=== PATIENT | female | born 1960 ===

== ENCOUNTER 2018-02-28 01:52 | Emergency (ER) | payer OTHER ==
[2018-02-28 01:56] VITALS: O2SAT 100; BMI 19.1
[2018-02-28] MEDS ORDERED: Sodium Chloride 0.9% 1,000 ML IV STA (02:23)
[2018-02-28] MEDS ORDERED: DiphenhydrAMINE 50 mg/ml Inj IV STA (02:23)
[2018-02-28] MEDS ORDERED: DiphenhydrAMINE 50 mg/ml Inj ONE (02:42)
--- NOTE | 2018-02-28 02:54 | ED PDOC ---
HPI: Skin/Bite Injury Time Seen by Provider: 02/28/18 02:00 Chief Complaint (Nursing): Bite Chief Complaint (Provider): diffused rash History Per: Patient History/Exam Limitations: no limitations Onset/Duration Of Symptoms: Hrs (x24) Current Symptoms Are (Timing): Still Present Quality Of Symptoms: Itching Additional Complaint(s): Neida Carpenter is a 57 year old female, with a past medical history of hypothyroidism, who presents to the emergency department for evaluation of diffused rash for the last x24 hrs. Patient reports x3-4 days ago she was bitten by what she thought were mosquitoes in her yard. Patient states she developed flu-like symptoms afterwards including body aches, headache and fever. Tonight she noticed she developed hives to her extremities and trunk. Patient describes them as itchy, raised, red and warm to touch. She applied topical steroid w/o relief. She was seen by PMD yesterday who did bloodwork including blood work to exclude West Nile Virus. She denies any other medical complaints. PMD: Dr. Rowe Past Medical History Reviewed: Historical Data, Nursing Documentation, Vital Signs Vital Signs: Last Vital Signs Temp 98.6 F 02/28/18 02:03 Pulse 75 02/28/18 02:03 Resp 16 02/28/18 02:03 BP 113/60 02/28/18 02:03 Pulse Ox 100 02/28/18 02:57 - Medical History PMH: Hypothyroidism - Surgical History Surgical History: No Surg Hx - Family History Family History: States: Unknown Family Hx - Social History Current smoker - smoking cessation education provided: No Alcohol: None Drugs: Denies - Home Medications Home Medications: Ambulatory Orders Medication Instructions Recorded Doxycycline Hyclate 100 mg PO BID #14 capsule 02/28/18 Famotidine [Pepcid] 20 mg PO Q12 #14 tab 02/28/18 Methylprednisolone [Medrol Dosepak] 4 mg PO ASDIR #1 pkg 02/28/18 - Allergies Allergies/Adverse Reactions: Allergies Allergy/AdvReac Type Severity Reaction Status Date / Time No Known Allergies Allergy Verified 02/28/18 02:12 Review of Systems ROS Statement: Except As Marked, All Systems Reviewed And Found Negative Skin: Positive for: Rash (to extremities and trunk) Physical Exam - Reviewed Nursing Documentation Reviewed: Yes Vital Signs Reviewed: Yes - Physical Exam Appears: Positive for: No Acute Distress Head Exam: Positive for: ATRAUMATIC, NORMAL INSPECTION, NORMOCEPHALIC Skin: Positive for: Normal Color, Warm, Dry, Rash (diffused urticarial) Eye Exam: Positive for: Normal appearance, EOMI, PERRL ENT: Positive for: Normal ENT Inspection Neck: Positive for: Painless ROM Cardiovascular/Chest: Positive for: Regular Rate, Rhythm. Negative for: Murmur Respiratory: Positive for: Normal Breath Sounds. Negative for: Respiratory Distress Gastrointestinal/Abdominal: Positive for: Normal Exam, Soft. Negative for: Tenderness Back: Positive for: Normal Inspection Extremity: Positive for: Normal ROM (upper and lower extremities). Negative for : Deformity, Swelling Neurologic/Psych: Positive for: Alert, Oriented. Negative for: Motor/Sensory Deficits - Laboratory Results Result Diagrams: 02/28/18 03:00 02/28/18 03:00 - ECG O2 Sat by Pulse Oximetry: 100 (RA) Pulse Ox Interpretation: Normal Medical Decision Making Medical Decision Making: Time: 02:00 Initial Impression: 57 y/o female with urticarial rash in setting of recent possible insect bites. Initial Plan: --CMP --CBC w/ differential --Erythrocyte Sedimentation Rate --Benadryl 50 mg PO IV --Sodium Chloride 1,000 ml IV 1,000 mls/hr --Pepcid 20 mg IV --SOLU-medrol 125 mg IVP --Reevaluation 04:55 -Labs reviewed and showed no clinical significant abnormalities. Patient reports improvement of symptoms and is medically stable for discharge home. Will treat for possible lymes disease exposure with doxycycline. Patient advised to follow up with her PMD, Dr. Rowe. ----- Scribe Attestation: Documented by Oswaldo Laureano, acting as a scribe for Everett Shea MD. Provider Scribe Attestation: All medical record entries made by the Scribe were at my direction and personally dictated by me. I have reviewed the chart and agree that the record accurately reflects my personal performance of the history, physical exam, medical decision making, and the department course for this patient. I have also personally directed, reviewed, and agree with the discharge instructions and disposition. Disposition - Clinical Impression Clinical Impression: Urticaria - Disposition Disposition: Routine/Home Disposition Time: 04:55 Condition: STABLE Prescriptions: Doxycycline Hyclate 100 mg PO BID #14 capsule Famotidine [Pepcid] 20 mg PO Q12 #14 tab Methylprednisolone [Medrol Dosepak] 4 mg PO ASDIR #1 pkg Instructions: Hives Forms: [facility] (Persian)
[2018-02-28 03:07] LABS: BASO % 0.5 % (0.0-2.0); EOS # 0.1 K/uL (0.0-0.7); EOS % 2.6 % (0.0-4.0); HEMOGLOBIN 12.7 g/dL (12.0-16.0); LYMPH # 2.1 K/uL (1.0-4.3); LYMPH % 40.4 % (20.0-40.0); MEAN CELL VOLUME 91.6 fl (81.0-99.0); MEAN CORPUSCULAR HEMOGLOBIN 31.4 pg (27.0-31.0); MEAN CORPUSCULAR HGB CONC 34.3 g/dL (33.0-37.0); MEAN PLATELET VOLUME 8.1 fl (7.2-11.7); MONO # 0.5 K/uL (0.0-0.8); MONO % 8.7 % (0.0-10.0); NEUT # 2.5 K/uL (1.8-7.0); NEUT % 47.8 % (50.0-75.0); NRBC % 0.1 % (0.0-0.0); RBC 4.05 Mil/uL (3.80-5.20); WHITE BLOOD COUNT 5.2 K/uL (4.8-10.8)
[2018-02-28 03:14] LABS: ALB/GLOB RATIO 1.4 (1.0-2.1); ALBUMIN 4.2 g/dL (3.5-5.0); ALT/SGPT 39 U/L (9-52); AST/SGOT 63 U/L (14-36); BLOOD UREA NITROGEN 17 mg/dl (7-17); CALCIUM 9.2 mg/dL (8.4-10.2); GFR AFRICAN-AMERICAN > 60; GFR NON-AFRICAN AMERICAN > 60
[2018-02-28 05:26] VITALS: BP 124/65; PULSE 82; RESP 18; TEMP 98.2
== END 2018-02-28 05:15 | disposition home or self-care (01) ==
LOC: MERGE 01:52 → H.ER 01:52
DX: L50.9 Urticaria, unspecified (principal); E03.9 Hypothyroidism, unspecified
CPT/HCPCS: 80053; 85025; 85651; 96374; 99283; J1200; J2930; J7030